=== PATIENT | female | born 1935 | race Caucasian/White ===

== ENCOUNTER 2022-01-07 23:50 | Emergency (ER) | payer MEDICARE, OTHER ==
[~2022-01-07] VITALS: Ht 162.6 cm; Wt 85.3 kg
[2022-01-08] MEDS ORDERED: ONDANSETRON HCL/PF 4 MG/2 ML VIAL ONE (00:06)
--- NOTE | 2022-01-08 00:18 | NUR ---
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 ENDORSES LAST MEAL AT 1500. PT AWAKE AND ALERT X4 BREATHING EVEN AND UNLABORED. PLACED ON MONITOR AND V/S WNL.
[2022-01-08 00:19] LABS: BASOPHILS # (AUTO) 0.1 K/uL (0.0-0.2); BASOPHILS % (AUTO) 0.9 % (0.0-2.0); EOSINOPHILS % (AUTO) 1.9 % (0.0-6.0); HEMATOCRIT 37 % (39-51); HEMOGLOBIN 11.9 g/dL (13.5-17.5); LYMPHOCYTES # (AUTO) 2.5 K/uL (0.8-4.8); LYMPHOCYTES % (AUTO) 18.4 % (20.0-44.0); MEAN CORPUSCULAR HGB CONC 33 g/dl (31.0-36.0); MEAN CORPUSCULAR VOLUME 92 fL (80-96); MONOCYTES # (AUTO) 0.7 K/uL (0.1-1.30); NEUTROPHILS % (AUTO) 73.8 % (43.0-81.0); PLATELET COUNT (AUTO) 283 K/uL (150-450); RED BLOOD CELL COUNT(AUTO) 3.98 MIL/uL (4.5-6.0); WHITE BLOOD COUNT (AUTO) 13.6 K/uL (4.3-11.0)
--- NOTE | 2022-01-08 00:22 | NUR ---
PT UNABLE TO PROVIDE URINE AT THIS TIME
--- NOTE | 2022-01-08 00:26 | NUR ---
PT BEING TRANPORTED TO CT VIA [facility]
[2022-01-08 00:27] LABS: CALCIUM, SERUM 9.7 mg/dL (8.5-10.1); CARBON DIOXIDE 23 mmol/L (21-32); CHLORIDE 99 mmol/L (98-107); CREATININE 1.8 mg/dL (0.6-1.3); GLUCOSE 234 mg/dL (74-106); POTASSIUM 4.3 mmol/L (3.5-5.1); SODIUM SERUM 137 mmol/L (136-145); UREA NITROGEN, BLOOD 29 mg/dL (7-18)
[2022-01-08] MEDS ORDERED: IV NS 0.9% 500 ML BAG IV ONE (00:30)
[2022-01-08] MEDS ORDERED: ONDANSETRON HCL/PF 4 MG/2 ML VIAL IVP ONE (00:30)
[2022-01-08 00:34] LABS: ALANINE AMINOTRANSFERASE 28 U/L (12-78); ALBUMIN 3.8 g/dL (3.4-5.0); ALKALINE PHOSPHATASE 88 U/L (46-116); ASPARTATE AMINOTRANSFERASE 28 U/L (15-37); BILIRUBIN,DIRECT 0.1 mg/dL (0.0-0.2); BILIRUBIN,TOTAL 0.3 mg/dL (0.2-1.0); LIPASE 109 U/L (73-393); TOTAL PROTEIN, SERUM 9.8 g/dL (6.4-8.2)
--- NOTE | 2022-01-08 01:16 | NUR ---
PT STILL UNABLE TO PROVIDE URINE SAMPLE
--- NOTE | 2022-01-08 01:43 | NUR ---
URINE COLLECTED AND SENT TO LAB
[2022-01-08 02:33] LABS: BILIRUBIN,URINE NEGATIVE (NEGATIVE); COLOR,URINE YELLOW (YELLOW); LEUKOCYTE ESTERASE ,URINE TRACE (NEGATIVE); NITRITE, URINE NEGATIVE (NEGATIVE); PH,URINE 5.5 (5.0-8.0); PROTEIN,URINE 100 mg/dl (NEGATIVE); UGLUCOSE 100 MG/DL mg/dL (NEGATIVE); UROBILINOGEN,URINE 0.2 EU/dL (0.2)
[2022-01-08 03:05] LABS: BACTERIA,URINE Moderate /HPF (None Seen); SQUAMOUS EPITHELIAL CELL,UR Few /HPF (None Seen); WBC,URINE 21-50 /HPF (0-3)
--- NOTE | 2022-01-08 03:10 | NUR ---
LAB AT BEDSIDE FOR REPEAT TROPONIN
[2022-01-08] MEDS ORDERED: ONDA4TAB5 PO (04:08)
[2022-01-08] MEDS ORDERED: NITR100C6 PO (04:12)
[2022-01-08] MEDS ORDERED: NITROFURANTOIN/MONOHYDRATE MACROCRYSTALS 100 MG CAPSULE ONE (04:21)
--- NOTE | 2022-01-08 04:22 | NUR ---
CALLED [facility] FOR INFORMATION FOR DISCHARGE. NO PICKUP.
[2022-01-08] MEDS ORDERED: NITROFURANTOIN/MONOHYDRATE MACROCRYSTALS 100 MG CAPSULE PO ONE (04:30)
--- NOTE | 2022-01-08 06:21 | NUR ---
WAGNER (FAMILY) CALLED AND WILL TAPER PRINTED CIRCUIT LAYOUT PATIENT
[2022-01-08 07:25] VITALS: BP 113/62
--- NOTE | 2022-01-08 07:25 | NUR ---
Patient discharged to home in stable condition. Written and verbal after care instructions given. Patient verbalizes understanding of instruction. IV removed. Catheter intact and site benign. Pressure and 4x4 applied to site. No bleeding noted.
== END 2022-01-08 07:25 | disposition home or self-care (01) ==
LOC: EDSEX 23:55 → ER 23:55
DX: N39.0 Urinary tract infection, site not specified (principal); R11.2 Nausea with vomiting, unspecified; E11.9 Type 2 diabetes mellitus without complications; Z60.2 Problems related to living alone; Z79.899 Other long term (current) drug therapy
CPT/HCPCS: 36415; 74176; 80048; 80076; 81001; 82962; 83690; 84484 ×2; 85025; 85730; 87077; 87086; 87186; 93005; 96374; 99285; J2405; J7030

== ENCOUNTER 2022-07-27 17:59 | Emergency (ER) | payer MEDICARE, OTHER ==
[~2022-07-27] VITALS: Ht 152.4 cm; Wt 68.0 kg
[~2022-07-27 17:59] MED LIST: NITR100C6 PO; ONDA4TAB5 PO
--- NOTE | 2022-07-27 18:22 | NUR ---
ANIG (SON) [phone] DEIDRE (CAREGIVER) [phone]
--- NOTE | 2022-07-27 18:30 | NUR ---
BIB RA 80 FROM HOME C/O R ANKLE PAIN S/O GLF THIS MORNING -LOC REPORTED. 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 AAOX4. VSS. BEATHING ABEL AND UNLABORED. AWAITING MD ORDERS.
--- NOTE | 2022-07-27 18:31 | NUR ---
PT STATES "MY TOES" HURT. RIGHT FOOT SWELLING NOTED. GOOD CMS.
[2022-07-27] MEDS ORDERED: HYDROCODONE/APAP 5/325MG TABLET PO ONE (19:00)
[2022-07-27] MEDS ORDERED: HYDROCODONE/APAP 5/325MG TABLET ONE (19:15)
--- NOTE | 2022-07-27 19:16 | NUR ---
XRAY AT BEDSIDE
--- NOTE | 2022-07-27 19:27 | NUR ---
REPORT GIVEN TO LALA NIEVES FOR SLOAN
[2022-07-27] MEDS ORDERED: HYDR-3972 PO ×2 (20:42→20:50)
--- NOTE | 2022-07-27 21:09 | NUR ---
[facility] ETA [id number]
--- NOTE | 2022-07-27 21:44 | NUR ---
REPORT GIVEN TO EMS
--- NOTE | 2022-07-27 21:51 | NUR ---
PT LEFT ON GURNEY WITH 2 AMBULANCE EMT AND CAREGIVER AT BEDSIDE. PT IS IN STABLE CONDITION FOR TRANSPORT.
[2022-07-27 21:52] VITALS: BP 152/78
== END 2022-07-27 21:53 | disposition home or self-care (01) ==
LOC: ER 18:03
DX: S93.601A Unspecified sprain of right foot, initial encounter (principal); I10 Essential (primary) hypertension; E11.9 Type 2 diabetes mellitus without complications; Z60.2 Problems related to living alone; Z79.899 Other long term (current) drug therapy; W01.0XXA Fall on same level from slipping, tripping and stumbling without subsequent striking against object, initial encounter; Y93.89 Activity, other specified; Y92.89 Other specified places as the place of occurrence of the external cause; Y99.8 Other external cause status
CPT/HCPCS: 73630-TC

== ENCOUNTER 2024-04-25 19:04 | Inpatient (IN) | payer MEDICARE, OTHER ==
[~2024-04-25] VITALS: Ht 144.8 cm; Wt 82.6 kg
[~2024-04-25 19:04] MED LIST changes: +HYDR-3972 PO
[2024-04-25 19:42] LABS: BASOPHILS # (AUTO) 0.2 K/uL (0.0-0.2); BASOPHILS % (AUTO) 1.3 % (0.0-2.0); EOSINOPHILS # (AUTO) 0.4 K/uL (0.0-0.7); EOSINOPHILS % (AUTO) 2.8 % (0.0-6.0); HEMATOCRIT 29 % (33-45); HEMOGLOBIN 9.8 g/dL (11.5-14.8); LYMPHOCYTES # (AUTO) 2.9 K/uL (0.8-4.8); LYMPHOCYTES % (AUTO) 21.3 % (20.0-44.0); MEAN CORPUSCULAR HEMOGLOBIN 31 PG (26.0-33.0); MEAN CORPUSCULAR HGB CONC 34 g/dl (31.0-36.0); MEAN CORPUSCULAR VOLUME 92 fL (82-100); MONOCYTES # (AUTO) 0.9 K/uL (0.1-1.30); MONOCYTES % (AUTO) 6.8 % (2.0-12.0); NEUTROPHILS # (AUTO) 9.2 K/uL (1.8-8.9); NEUTROPHILS % (AUTO) 67.8 % (43.0-81.0); PLATELET COUNT (AUTO) 446 K/uL (150-450); RED BLOOD CELL COUNT(AUTO) 3.16 MIL/uL (4.0-5.2); RED CELL DISTRIBUTION WIDTH 14.4 % (11.5-15.0); WHITE BLOOD COUNT (AUTO) 13.5 K/uL (4.3-11.0)
[2024-04-25] MEDS: IV NS 0.9% 1,000 ML BAG IV ONE (19:55)
[2024-04-25 19:56] LABS: CALCIUM, SERUM 9.7 mg/dL (8.5-10.1); CARBON DIOXIDE 31 mmol/L (21-32); CHLORIDE 94 mmol/L (98-107); CREATININE 4.9 mg/dL (0.6-1.3); GLUCOSE 127 mg/dL (74-106); SODIUM SERUM 136 mmol/L (136-145)
[2024-04-25 20:00] LABS: UREA NITROGEN, BLOOD 106 mg/dL (7-18)
[2024-04-25 20:02] LABS: ALANINE AMINOTRANSFERASE 39 U/L (12-78); ALBUMIN 2.9 g/dL (3.4-5.0); ALKALINE PHOSPHATASE 78 U/L (46-116); ASPARTATE AMINOTRANSFERASE 45 U/L (15-37); BILIRUBIN,DIRECT 0.2 mg/dL (0.0-0.2); BILIRUBIN,TOTAL 0.6 mg/dL (0.2-1.0)
[2024-04-25 20:04] LABS: LACTIC ACID 1.7 mmol/L (0.4-2.0)
[2024-04-25 20:09] LABS: THYROID STIMULATING HORMONE 1.31 uIU/mL (0.358-3.74)
[2024-04-25 20:47] LABS: INR 1.07 (0.91-1.10); PARTIAL THROMBOPLASTIN TIME 26.9 SEC (24.3-34.3)
[2024-04-25] MEDS ORDERED: CEFTRIAXONE 1GM BAG (ER ONLY) 50 ML IV ONE (21:02)
[2024-04-25 21:04] LABS: APPEARANCE,URINE CLEAR (CLEAR); BILIRUBIN,URINE NEGATIVE (NEGATIVE); BLOOD, URINE NEGATIVE Ery/uL (NEGATIVE); COLOR,URINE YELLOW (YELLOW); KETONES,URINE NEGATIVE (NEGATIVE); LEUKOCYTE ESTERASE ,URINE NEGATIVE (NEGATIVE); NITRITE, URINE NEGATIVE (NEGATIVE); PROTEIN,URINE NEGATIVE (NEGATIVE); UGLUCOSE NEGATIVE (NEGATIVE); UROBILINOGEN,URINE 0.2 EU/dL (0.2)
[2024-04-25] MEDS: CEFTRIAXONE 1 G in IV D5W 50 ML IV ONE (21:07)
[2024-04-25] MEDS ORDERED: ONDANSETRON HCL/PF 4 MG/2 ML VIAL IVP PRN (21:30)
[2024-04-25] MEDS ORDERED: MAGNESIUM HYDROXIDE 30 ML UDC PO PRN (21:30)
[2024-04-25] MEDS ORDERED: Z GUARD REMEDY 4 OZ OINT TP PRN (21:30)
[2024-04-25] MEDS ORDERED: MAG HYDROX/AL HYDROX/SIMETH 30 ML UDC PO PRN (21:30)
[2024-04-25] MEDS ORDERED: ACETAMINOPHEN 325 MG TABLET PO PRN (21:30)
[2024-04-25] MEDS: IV NS 0.9% 1,000 ML BAG IV STA (23:12)
[2024-04-26] VITALS: BP 132/79; TEMP 97.9; O2SAT 96
[2024-04-26] MEDS ORDERED: AZITHROMYCIN 500 MG VIAL ONE (00:56)
[2024-04-26] MEDS: IV NS 0.9% 1,000 ML IV PRN (01:08)
[2024-04-26] MEDS: AZITHROMYCIN 500 MG in IV D5W 250 ML IV SCH ×2 (01:23→22:23)
[2024-04-26 04:00] VITALS: BP 128/62; TEMP 98.1; O2SAT 96
[2024-04-26 06:34] LABS: BASOPHILS % (AUTO) 0.4 % (0.0-2.0); EOSINOPHILS # (AUTO) 0.3 K/uL (0.0-0.7); HEMATOCRIT 29 % (33-45); HEMOGLOBIN 9.8 g/dL (11.5-14.8); LYMPHOCYTES # (AUTO) 2.2 K/uL (0.8-4.8); LYMPHOCYTES % (AUTO) 21.1 % (20.0-44.0); MEAN CORPUSCULAR HEMOGLOBIN 32 PG (26.0-33.0); MEAN CORPUSCULAR HGB CONC 34 g/dl (31.0-36.0); MEAN CORPUSCULAR VOLUME 95 fL (82-100); MONOCYTES # (AUTO) 0.7 K/uL (0.1-1.30); MONOCYTES % (AUTO) 7.2 % (2.0-12.0); NEUTROPHILS % (AUTO) 68.3 % (43.0-81.0); PLATELET COUNT (AUTO) 307 K/uL (150-450); RED BLOOD CELL COUNT(AUTO) 3.07 MIL/uL (4.0-5.2); WHITE BLOOD COUNT (AUTO) 10.3 K/uL (4.3-11.0)
[2024-04-26 06:57] LABS: CARBON DIOXIDE 23 mmol/L (21-32); CHLORIDE 95 mmol/L (98-107); CREATININE 4.6 mg/dL (0.6-1.3); GLUCOSE 127 mg/dL (74-106); MAGNESIUM 2.4 mg/dL (1.8-2.4); PHOSPHORUS 4.8 mg/dL (2.5-4.9); POTASSIUM 3.2 mmol/L (3.5-5.1); SODIUM SERUM 133 mmol/L (136-145)
[2024-04-26 07:04] LABS: UREA NITROGEN, BLOOD 98 mg/dL (7-18)
[2024-04-26] MEDS ORDERED: AZITHROMYCIN 500 MG in IV D5W 250 ML IV SCH (07:29)
[2024-04-26] MEDS ORDERED: CEFTRIAXONE 1 G in IV D5W 50 ML IV SCH (09:00)
[2024-04-26 12:00] VITALS: BP 109/50; TEMP 98.1; O2SAT 95
[2024-04-26] MEDS: DAKINS HALF STRENGTH (0.25%) 480 ML BOTTLE TOP SCH (14:21)
[2024-04-26 14:59] LABS: CARBON DIOXIDE 23 mmol/L (21-32); CHLORIDE 97 mmol/L (98-107); CREATININE 4.7 mg/dL (0.6-1.3); GLUCOSE 266 mg/dL (74-106); POTASSIUM 3.4 mmol/L (3.5-5.1); SODIUM SERUM 136 mmol/L (136-145)
[2024-04-26 15:04] LABS: UREA NITROGEN, BLOOD 98 mg/dL (7-18)
[2024-04-26 20:00] VITALS: BP 134/59; TEMP 98.8; O2SAT 95
[2024-04-26] MEDS: CEFTRIAXONE 1 G in IV D5W 50 ML IV SCH (21:08)
[2024-04-27 04:00] VITALS: BP 149/55; TEMP 98.4; O2SAT 93
[2024-04-27 07:06] LABS: BASOPHILS # (AUTO) 0.1 K/uL (0.0-0.2); BASOPHILS % (AUTO) 0.6 % (0.0-2.0); EOSINOPHILS # (AUTO) 0.3 K/uL (0.0-0.7); EOSINOPHILS % (AUTO) 2.6 % (0.0-6.0); HEMATOCRIT 28 % (33-45); HEMOGLOBIN 9.1 g/dL (11.5-14.8); LYMPHOCYTES # (AUTO) 1.9 K/uL (0.8-4.8); LYMPHOCYTES % (AUTO) 17.9 % (20.0-44.0); MEAN CORPUSCULAR HEMOGLOBIN 31 PG (26.0-33.0); MEAN CORPUSCULAR HGB CONC 33 g/dl (31.0-36.0); MEAN CORPUSCULAR VOLUME 94 fL (82-100); MONOCYTES # (AUTO) 0.7 K/uL (0.1-1.30); MONOCYTES % (AUTO) 6.6 % (2.0-12.0); NEUTROPHILS # (AUTO) 7.7 K/uL (1.8-8.9); NEUTROPHILS % (AUTO) 72.3 % (43.0-81.0); PLATELET COUNT (AUTO) 317 K/uL (150-450); RED BLOOD CELL COUNT(AUTO) 2.97 MIL/uL (4.0-5.2); RED CELL DISTRIBUTION WIDTH 14.2 % (11.5-15.0); WHITE BLOOD COUNT (AUTO) 10.6 K/uL (4.3-11.0)
[2024-04-27 07:28] LABS: ALANINE AMINOTRANSFERASE 28 U/L (12-78); ALBUMIN 2.8 g/dL (3.4-5.0); ALKALINE PHOSPHATASE 72 U/L (46-116); ASPARTATE AMINOTRANSFERASE 24 U/L (15-37); BILIRUBIN,TOTAL 0.3 mg/dL (0.2-1.0); CALCIUM, SERUM 9.7 mg/dL (8.5-10.1); CARBON DIOXIDE 27 mmol/L (21-32); CHLORIDE 100 mmol/L (98-107); GLUCOSE 175 mg/dL (74-106); MAGNESIUM 2.1 mg/dL (1.8-2.4); PHOSPHORUS 4.7 mg/dL (2.5-4.9); POTASSIUM 3.3 mmol/L (3.5-5.1); SODIUM SERUM 140 mmol/L (136-145); TOTAL PROTEIN, SERUM 8.8 g/dL (6.4-8.2)
[2024-04-27 07:31] LABS: CREATINE KINASE, TOTAL 210 U/L (26-192)
[2024-04-27 07:36] LABS: UREA NITROGEN, BLOOD 80 mg/dL (7-18)
[2024-04-27] MEDS: POTASSIUM CHLORIDE 20 MEQ TAB.PRT.SR PO ONE (09:40)
[2024-04-27 20:00] VITALS: BP 150/50; TEMP 98.7; O2SAT 94
[2024-04-27 22:58] LABS: APPEARANCE,URINE CLEAR (CLEAR); BILIRUBIN,URINE NEGATIVE (NEGATIVE); BLOOD, URINE TRACE-INTA Ery/uL (NEGATIVE); COLOR,URINE YELLOW (YELLOW); KETONES,URINE NEGATIVE (NEGATIVE); LEUKOCYTE ESTERASE ,URINE 2+ (NEGATIVE); NITRITE, URINE POSITIVE (NEGATIVE); PH,URINE 5.5 (5.0-8.0); PROTEIN,URINE NEGATIVE (NEGATIVE); UGLUCOSE NEGATIVE (NEGATIVE); UROBILINOGEN,URINE 0.2 EU/dL (0.2)
[2024-04-27 23:00] LABS: ADD URINE CULTURE YES; BACTERIA,URINE Moderate /HPF (None Seen); SQUAMOUS EPITHELIAL CELL,UR Rare /HPF (None Seen); WBC,URINE 21-50 /HPF (0-3)
[2024-04-27 23:01] LABS: CREATININE, URINE 82.2 MG/DL (30.0-125.0); URINE TOTAL PROTEIN 38.4 mg/dL (0-11.9)
[2024-04-27 23:33] LABS: EOSINOPHIL,URINE None Seen
[2024-04-28 04:00] VITALS: BP 105/71; TEMP 98.5; O2SAT 94
[2024-04-28 08:09] LABS: PTH, INTACT 37 pg/mL (15-65)
[2024-04-28] MEDS: HEPARIN SODIUM, PORCINE 5000 UNITS/1 ML VIAL SQ SCH (08:20)
[2024-04-28 13:01] LABS: ALANINE AMINOTRANSFERASE 23 U/L (12-78); ALBUMIN 2.5 g/dL (3.4-5.0); ALKALINE PHOSPHATASE 68 U/L (46-116); ASPARTATE AMINOTRANSFERASE 24 U/L (15-37); BILIRUBIN,TOTAL 0.3 mg/dL (0.2-1.0); CALCIUM, SERUM 9.1 mg/dL (8.5-10.1); CARBON DIOXIDE 26 mmol/L (21-32); CHLORIDE 107 mmol/L (98-107); GLUCOSE 191 mg/dL (74-106); MAGNESIUM 1.6 mg/dL (1.8-2.4); PHOSPHORUS 3.6 mg/dL (2.5-4.9); SODIUM SERUM 143 mmol/L (136-145); UREA NITROGEN, BLOOD 54 mg/dL (7-18)
[2024-04-28 13:28] LABS: BASOPHILS % (AUTO) 0.5 % (0.0-2.0); EOSINOPHILS # (AUTO) 0.3 K/uL (0.0-0.7); EOSINOPHILS % (AUTO) 3.3 % (0.0-6.0); HEMATOCRIT 25 % (33-45); HEMOGLOBIN 8.8 g/dL (11.5-14.8); LYMPHOCYTES # (AUTO) 1.3 K/uL (0.8-4.8); LYMPHOCYTES % (AUTO) 16.2 % (20.0-44.0); MEAN CORPUSCULAR HEMOGLOBIN 32 PG (26.0-33.0); MEAN CORPUSCULAR HGB CONC 35 g/dl (31.0-36.0); MEAN CORPUSCULAR VOLUME 92 fL (82-100); MONOCYTES # (AUTO) 0.5 K/uL (0.1-1.30); MONOCYTES % (AUTO) 6.4 % (2.0-12.0); NEUTROPHILS # (AUTO) 5.9 K/uL (1.8-8.9); NEUTROPHILS % (AUTO) 73.6 % (43.0-81.0); PLATELET COUNT (AUTO) 269 K/uL (150-450); RED BLOOD CELL COUNT(AUTO) 2.73 MIL/uL (4.0-5.2); RED CELL DISTRIBUTION WIDTH 14.3 % (11.5-15.0)
[2024-04-29 04:00] VITALS: BP 143/70; TEMP 98.1; O2SAT 95
[2024-04-29 06:27] LABS: BASOPHILS # (AUTO) 0.1 K/uL (0.0-0.2); BASOPHILS % (AUTO) 0.7 % (0.0-2.0); EOSINOPHILS # (AUTO) 0.4 K/uL (0.0-0.7); EOSINOPHILS % (AUTO) 3.8 % (0.0-6.0); HEMATOCRIT 26 % (33-45); HEMOGLOBIN 8.7 g/dL (11.5-14.8); LYMPHOCYTES # (AUTO) 1.7 K/uL (0.8-4.8); MEAN CORPUSCULAR HEMOGLOBIN 31 PG (26.0-33.0); MEAN CORPUSCULAR HGB CONC 33 g/dl (31.0-36.0); MEAN CORPUSCULAR VOLUME 93 fL (82-100); MONOCYTES # (AUTO) 0.8 K/uL (0.1-1.30); MONOCYTES % (AUTO) 8.1 % (2.0-12.0); NEUTROPHILS # (AUTO) 6.4 K/uL (1.8-8.9); NEUTROPHILS % (AUTO) 69.4 % (43.0-81.0); PLATELET COUNT (AUTO) 264 K/uL (150-450); RED BLOOD CELL COUNT(AUTO) 2.82 MIL/uL (4.0-5.2); RED CELL DISTRIBUTION WIDTH 14.5 % (11.5-15.0); WHITE BLOOD COUNT (AUTO) 9.2 K/uL (4.3-11.0)
[2024-04-29 06:48] LABS: ALANINE AMINOTRANSFERASE 27 U/L (12-78); ALBUMIN 2.5 g/dL (3.4-5.0); ALKALINE PHOSPHATASE 60 U/L (46-116); ASPARTATE AMINOTRANSFERASE 28 U/L (15-37); BILIRUBIN,TOTAL 0.3 mg/dL (0.2-1.0); CALCIUM, SERUM 8.9 mg/dL (8.5-10.1); CARBON DIOXIDE 22 mmol/L (21-32); CHLORIDE 105 mmol/L (98-107); CREATININE 2.5 mg/dL (0.6-1.3); GLUCOSE 143 mg/dL (74-106); MAGNESIUM 1.5 mg/dL (1.8-2.4); PHOSPHORUS 3.3 mg/dL (2.5-4.9); POTASSIUM 3.8 mmol/L (3.5-5.1); SODIUM SERUM 139 mmol/L (136-145); TOTAL PROTEIN, SERUM 7.9 g/dL (6.4-8.2); UREA NITROGEN, BLOOD 42 mg/dL (7-18)
[2024-04-29 08:00] VITALS: BP 142/69; TEMP 98.6; O2SAT 96
[2024-04-29] MEDS: MAGNESIUM OXIDE 400 MG TABLET PO ONE (10:01)
[2024-04-30 06:39] LABS: BASOPHILS # (AUTO) 0.1 K/uL (0.0-0.2); BASOPHILS % (AUTO) 0.7 % (0.0-2.0); EOSINOPHILS # (AUTO) 0.3 K/uL (0.0-0.7); EOSINOPHILS % (AUTO) 3.1 % (0.0-6.0); HEMATOCRIT 26 % (33-45); HEMOGLOBIN 8.4 g/dL (11.5-14.8); LYMPHOCYTES # (AUTO) 1.5 K/uL (0.8-4.8); MEAN CORPUSCULAR HEMOGLOBIN 31 PG (26.0-33.0); MEAN CORPUSCULAR HGB CONC 33 g/dl (31.0-36.0); MEAN CORPUSCULAR VOLUME 96 fL (82-100); MONOCYTES # (AUTO) 0.6 K/uL (0.1-1.30); NEUTROPHILS # (AUTO) 5.9 K/uL (1.8-8.9); NEUTROPHILS % (AUTO) 71.2 % (43.0-81.0); PLATELET COUNT (AUTO) 233 K/uL (150-450); RED BLOOD CELL COUNT(AUTO) 2.69 MIL/uL (4.0-5.2); RED CELL DISTRIBUTION WIDTH 14.8 % (11.5-15.0); WHITE BLOOD COUNT (AUTO) 8.2 K/uL (4.3-11.0)
[2024-04-30 06:57] LABS: CARBON DIOXIDE 18 mmol/L (21-32); CHLORIDE 111 mmol/L (98-107); CREATININE 1.9 mg/dL (0.6-1.3); GLUCOSE 131 mg/dL (74-106); MAGNESIUM 1.3 mg/dL (1.8-2.4); POTASSIUM 3.2 mmol/L (3.5-5.1); SODIUM SERUM 143 mmol/L (136-145); UREA NITROGEN, BLOOD 27 mg/dL (7-18)
[2024-04-30 08:00] VITALS: BP 145/90; TEMP 98.4; O2SAT 95
[2024-04-30 08:11] LABS: EOSINOPHILS % (MANUAL) 3 % (0-4); LYMPHOCYTES % (MANUAL) 21 % (16-48); METAMYELOCYTES % 2 % (0-0); MONOCYTES % (MANUAL) 6 % (0-11.0); NEUTROPHILS % (MANUAL) 68 (42-76)
[2024-04-30 08:12] LABS: PLATELET ESTIMATE ADEQUATE
[2024-04-30] MEDS ORDERED: LEVO500T90 PO (09:20)
[2024-04-30] MEDS: Magnesium 1GM/D5W 100ML PREMIX 100 ML IV SCH (09:48)
[2024-04-30] MEDS: POTASSIUM CL. PREMIX PERIPHER. 50 ML IV SCH (12:01)
[2024-04-30] MEDS: ENSURE ENLIVE 237 ML LIQUID (VANILLA) PO SCH (12:02)
[2024-04-30] MEDS: hydrALAZINE HCL IV 20 MG VIAL IV ONE (15:44)
[2024-04-30 16:08] VITALS: BP 158/92
[2024-05-01 07:09] LABS: *SPE A/G RATIO 0.6 (0.7-1.7); *SPE ALPHA-1-GLOBULIN 0.3 g/dL (0.0-0.4); *SPE ALPHA-2-GLOBULIN 1.2 g/dL (0.4-1.0); *SPE BETA GLOBULIN 1.6 g/dL (0.7-1.3); *SPE GLOBULIN, TOTAL 4.7 g/dL (2.2-3.9); *SPE M-SPIKE Not Observed g/dL (Not Observed); *SPE PROTEIN TOTAL 7.7 g/dL (6.0-8.5); *SPEGAMMA GLOBULIN 1.5 g/dL (0.4-1.8)
== END 2024-04-30 16:15 | DRG 177 ==
LOC: ER 19:34 → TELE1 22:47 → MEDSG1 23:57
PROVIDERS: ADMIT Nurse Practitioner Acute Care; ATTEND Internal Medicine
DX: J15.69 Pneumonia due to other Gram-negative bacteria (principal); G92.8 Other toxic encephalopathy; N17.0 Acute kidney failure with tubular necrosis; E44.0 Moderate protein-calorie malnutrition; E87.1 Hypo-osmolality and hyponatremia; I12.9 Hypertensive chronic kidney disease with stage 1 through stage 4 chronic kidney disease, or unspecified chronic kidney disease; F03.90 Unspecified dementia, unspecified severity, without behavioral disturbance, psychotic disturbance, mood disturbance, and anxiety; N18.9 Chronic kidney disease, unspecified; Z68.39 Body mass index [BMI] 39.0-39.9, adult; E66.9 Obesity, unspecified; D64.9 Anemia, unspecified; E87.6 Hypokalemia; E88.09 Other disorders of plasma-protein metabolism, not elsewhere classified; M89.8X9 Other specified disorders of bone, unspecified site; E11.22 Type 2 diabetes mellitus with diabetic chronic kidney disease; E86.0 Dehydration; L82.1 Other seborrheic keratosis; R65.10 Systemic inflammatory response syndrome (SIRS) of non-infectious origin without acute organ dysfunction
CPT/HCPCS: 36415; 71045-TC; 71250-TC; 76770-TC; 80048-TC; 80053-TC; 80076-TC; 81001; 82550-TC; 82570-TC; 82962-TC; 83605-TC; 83735-TC; 83880; 83970; 84100-TC; 84155; 84165; 84300-TC; 84443-TC; 84484-TC; 85025-TC; 85730-TC; 87040-TC; 87086-TC; 92526; 92611-TC; 97110-TC; 97116-TC; 97530-TC; A4223; G0378; J0360; J0456; J0696; J1644; J3475; J3480; J3490; J7030; J7060

== ENCOUNTER 2025-05-21 08:11 | Inpatient (IN) | payer MEDICARE, MEDICAID ==
[~2025-05-21] VITALS: Ht 147.3 cm; Wt 66.2 kg
[~2025-05-21 08:11] MED LIST changes: +LEVO500T90 PO; -NITR100C6 PO
[2025-05-21 08:39] VITALS: O2SAT 96
[2025-05-21] MEDS: IV NS 0.9% 1,000 ML BAG IV ONE (08:55)
[2025-05-21 08:59] LABS: PLATELET COUNT (AUTO) 467 K/uL (150-450); RED BLOOD CELL COUNT(AUTO) 2.85 MIL/uL (4.0-5.2); RED CELL DISTRIBUTION WIDTH 20.3 % (11.5-15.0); WHITE BLOOD COUNT (AUTO) 22.4 K/uL (4.3-11.0)
[2025-05-21] MEDS ORDERED: INSU100V39 SQ (09:00)
[2025-05-21] MEDS ORDERED: MELA3TAB41 PO (09:00)
[2025-05-21] MEDS ORDERED: SODI650T PO (09:00)
[2025-05-21] MEDS ORDERED: LEVO50TA8 PO (09:00)
[2025-05-21] MEDS ORDERED: OMEP20CA15 PO (09:00)
[2025-05-21] MEDS ORDERED: LACT100C2 PO (09:00)
[2025-05-21] MEDS ORDERED: FEBU40TA3 PO (09:00)
[2025-05-21] MEDS ORDERED: LOPE2TAB25 PO (09:00)
[2025-05-21] MEDS ORDERED: SENN8.6T19 PO (09:00)
[2025-05-21] MEDS ORDERED: AMLO10TA4 PO (09:00)
[2025-05-21] MEDS ORDERED: ESCI5TAB PO (09:00)
[2025-05-21] MEDS ORDERED: DIPH25TA62 PO (09:00)
[2025-05-21] MEDS ORDERED: CHLO25TA2 PO (09:00)
[2025-05-21] MEDS ORDERED: DONE10TA44 PO (09:00)
[2025-05-21] MEDS ORDERED: ACET325T53 PO (09:00)
[2025-05-21] MEDS ORDERED: MELA3CAP2 PO (09:00)
[2025-05-21] MEDS ORDERED: MEGE400O5 PO (09:00)
[2025-05-21] MEDS ORDERED: NEBI5TAB8 PO (09:00)
[2025-05-21] MEDS ORDERED: LISI10TA29 PO (09:00)
[2025-05-21] MEDS ORDERED: CRAN400C PO (09:00)
[2025-05-21] MEDS: CEFEPIME 1 GM in IV D5W 50 ML IV ONE (09:06)
[2025-05-21 09:11] LABS: INR 1.31 (0.91-1.10)
[2025-05-21 09:17] LABS: LACTIC ACID 2.5 mmol/L (0.4-2.0)
[2025-05-21] MEDS: VANCOMYCIN 1 GM in IV D5W 250 ML IV ONE (09:23)
[2025-05-21] MEDS: IV NS 0.9% 500 ML BAG IV ONE (09:23)
[2025-05-21 10:35] LABS: ASPARTATE AMINOTRANSFERASE 22 U/L (15-37); CALCIUM, SERUM 6.5 mg/dL (8.5-10.1); SODIUM SERUM 139 mmol/L (136-145); TOTAL PROTEIN, SERUM 7.6 g/dL (6.4-8.2)
[2025-05-21 10:55] LABS: CREATININE 9.7 mg/dL (0.6-1.3); UREA NITROGEN, BLOOD 150 mg/dL (7-18)
[2025-05-21 11:15] VITALS: O2SAT 96
[2025-05-21 11:20] LABS: ABG BASE EXCESS -28.4 mmol/L (-2.0-3.0); ABG OXYGEN SATURATION 98.9 % (94.0-98.0); ABG PCO2 10.6 mmHg (32.0-45.0); ABG PH 6.923 (7.350-7.450); ABG PO2 216.4 mmHg (83.0-108.0); ABG TOTAL HEMOGLOBIN 8.8 G/dL (12.0-16.0); FLOW, BLOOD GAS 6.00 L/min (0.00-30.00); FRACTIONATED INSPIRED OXYGEN 44.0 %; SITE, ABG LEFT RADIAL
[2025-05-21 13:00] VITALS: BP 104/47; TEMP 97.1
[2025-05-21] MEDS ORDERED: KEY,NONCONTROL,TO KEEP IN PYXI 1 EA MC ONE (14:06)
[2025-05-21] MEDS: MORPHINE SULFATE INJ 2 MG/ML DISP.SYRIN IV ONE (14:09)
[2025-05-21] MEDS: MORPHINE SULFATE PF DRIP 250 MG in IV D5W 240 ML IV PRN (14:09)
[2025-05-21] MEDS: LORAZEPAM INJ 2 MG/ML VIAL IV ONE (14:09)
[2025-05-21 17:00] VITALS: BP 104/47; TEMP 97.1
[2025-05-21 21:00] VITALS: BP 104/47; TEMP 97.1; O2SAT 96
== END 2025-05-22 14:13 | disposition hospice, inpatient (51) | DRG 871 ==
LOC: ER 08:16 → TELE1 09:01 → MEDSG1 12:53
PROVIDERS: ADMIT Nurse Practitioner Acute Care; ATTEND Nurse Practitioner Acute Care
DX: A41.9 Sepsis, unspecified organism (principal); G93.41 Metabolic encephalopathy; I50.33 Acute on chronic diastolic (congestive) heart failure; J96.01 Acute respiratory failure with hypoxia; E87.20 Acidosis, unspecified; Z51.5 Encounter for palliative care; D68.9 Coagulation defect, unspecified; I11.0 Hypertensive heart disease with heart failure; E87.5 Hyperkalemia; N17.9 Acute kidney failure, unspecified; F09 Unspecified mental disorder due to known physiological condition; E11.9 Type 2 diabetes mellitus without complications; F03.90 Unspecified dementia, unspecified severity, without behavioral disturbance, psychotic disturbance, mood disturbance, and anxiety; D50.9 Iron deficiency anemia, unspecified; Z66 Do not resuscitate; Z79.890 Hormone replacement therapy; Z79.4 Long term (current) use of insulin; Z79.899 Other long term (current) drug therapy; D75.839 Thrombocytosis, unspecified; Z87.440 Personal history of urinary (tract) infections
CPT/HCPCS: 36415; 71045-TC; 80048-TC; 80076-TC; 82803-TC; 83605-TC; 83880; 84484-TC; 85025-TC; 85730-TC; 87040-TC; 87081-TC; 93970-TC; 94799-TC; A4223; G0378; J0692; J2060; J2270; J2274; J3373; J7030; J7060

== ENCOUNTER 2025-05-22 14:08 | Inpatient (IN) | payer OTHER ==
[~2025-05-22 14:08] MED LIST changes: +ACET325T53 PO; +AMLO10TA4 PO; +CHLO25TA2 PO; +CRAN400C PO; +DIPH25TA62 PO; +DONE10TA44 PO; +ESCI5TAB PO; +FEBU40TA3 PO; -HYDR-3972 PO; +INSU100V39 SQ; +LACT100C2 PO; -LEVO500T90 PO; +LEVO50TA8 PO; +LISI10TA29 PO; +LOPE2TAB25 PO; +MEGE400O5 PO; +MELA3CAP2 PO; +MELA3TAB41 PO; +NEBI5TAB8 PO; +OMEP20CA15 PO; -ONDA4TAB5 PO; +SENN8.6T19 PO; +SODI650T PO
[2025-05-22] MEDS ORDERED: LORAZEPAM INJ 2 MG/ML VIAL IVP PRN (14:30)
[2025-05-22] MEDS: KEY,NONCONTROL,TO KEEP IN PYXI 1 EA MC ONE ×2 (15:04→18:51)
[2025-05-22] MEDS: MORPHINE SULFATE PF DRIP 250 MG in IV D5W 240 ML IV PRN (15:24)
[2025-05-23] MEDS: KEY,NONCONTROL,TO KEEP IN PYXI 1 EA MC ONE ×2 (04:49→06:21)
== END 2025-05-23 05:28 | DRG 862 ==
LOC: HOSPICE1 14:08
PROVIDERS: ADMIT Nurse Practitioner Acute Care; ATTEND Nurse Practitioner Acute Care
DX: Z51.5 Encounter for palliative care (principal); A41.9 Sepsis, unspecified organism; J96.01 Acute respiratory failure with hypoxia; G93.41 Metabolic encephalopathy; I50.33 Acute on chronic diastolic (congestive) heart failure; E87.20 Acidosis, unspecified; D68.9 Coagulation defect, unspecified; N17.9 Acute kidney failure, unspecified; F05 Delirium due to known physiological condition; I11.0 Hypertensive heart disease with heart failure; E11.9 Type 2 diabetes mellitus without complications; F03.90 Unspecified dementia, unspecified severity, without behavioral disturbance, psychotic disturbance, mood disturbance, and anxiety; D50.9 Iron deficiency anemia, unspecified; D75.839 Thrombocytosis, unspecified; E87.5 Hyperkalemia; Z87.440 Personal history of urinary (tract) infections; Z87.01 Personal history of pneumonia (recurrent); Z79.4 Long term (current) use of insulin; Z66 Do not resuscitate
CPT/HCPCS: G0378; J2274; J7060